=== PATIENT | female | born 1955 | race Caucasian/White ===

== ENCOUNTER → 2023-10-03 09:51 | Outpatient (REF) | payer MEDICARE, OTHER, SELFPAY ==
[2023-10-03 10:27] LABS: % Basophils 0.3 % (0-2); % Eosinophils 1.8 % (0-6); % Immature Granulocytes 0.4 % (0-0.5); % Lymphocytes 25.7 % (20.5-51.1); % Monocytes 7.2 % (1.7-9.3); % Neutrophils 64.6 % (42.2-75.2); Absolute Eosinophils 0.1 10^3/uL (0-0.7); Absolute Lymphocytes 1.8 10^3/uL (1.2-3.4); Absolute Monocytes 0.5 10^3/uL (0.1-0.6); Absolute Neutrophils 4.4 10^3/uL (1.4-6.5); Hemoglobin 13.6 g/dL (12.0-16.0); Mean Corp Hgb Conc. 33.2 g/dL (33.0-37.0); Mean Corpuscular Volume 84.5 fL (81.0-99.0); Mean Platelet Volume 9.3 fL (7.4-10.4); Nucleated Red Blood Cells % 0 %; Platelet Count 300 10^3/uL (130-400); Red Blood Cell Count 4.85 10^6/uL (4.20-5.40); Red Cell Dist. Width 13.8 % (11.5-14.5); White Blood Cell Count 6.9 10^3/uL (4.8-10.8)
[2023-10-03 12:49] LABS: ALT (SGPT) 31 U/L (0-35); AST (SGOT) 26 U/L (14-36); Albumin 4.4 g/dl (3.5-5.0); Alkaline Phosphatase 79 U/L (38-126); Blood Urea Nitrogen 23 mg/dl (7-17); Calcium 9.7 mg/dl (8.4-10.2); Carbon Dioxide 29 mmol/L (22-30); Chloride 103 mmol/L (98-107); Glucose 105 mg/dl (70-99); Potassium 3.9 mmol/L (3.5-5.1); Sodium 140 mmol/L (135-145); Total Bilirubin 0.6 mg/dl (0.2-1.3); Total Protein 7.6 g/dl (6.3-8.2); eGFR > 60.00
== END ==
LOC: SDSPAT 09:51
PROVIDERS: ATTENDING PHYSICIAN Internal Medicine Cardiovascular Disease; FAMILY PHYSICIAN Internal Medicine; OTHER PHYSICIAN Internal Medicine Cardiovascular Disease
DX: Z01.818 Encounter for other preprocedural examination (principal); I48.19 Other persistent atrial fibrillation
CPT/HCPCS: 36415; 80053; 85025; 93005

== ENCOUNTER 2023-10-22 05:51 | Day surgery (SDC) | payer MEDICARE, OTHER, SELFPAY ==
[2023-10-03 10:01] VITALS: BMI 42.7
[2023-10-22] VITALS (12 sets, daily range): BP systolic 108–170; BP diastolic 56–90; BMI 41.6
[2023-10-22] MEDS: NSS 329 ML IV (06:56)
[2023-10-22 08:28] LABS: ACT-LR - POC 311 Seconds (116-155)
--- NOTE | 2023-10-22 09:00 | ITS.CL.CATH ---
Addendum entered and electronically signed by Michele Ramos MD 10/22/23 17:03:
Correction: Under iFR results the IFR measurements in the RCA where 0.97, 0.97, and 0.97. There was no reading of 0.87 as reported erroneously below
Original Note:
[employer] [facility] [facility] - Catheterization
Cardiac Catheterization
Procedure Report:
CARDIAC CATHETERIZATION REPORT
Date of Procedure: 10/22/2023
Referring: Erick Kaur MD
Indication: Abnormal stress test with exertional dyspnea then abnormal coronary CTA
HEMODYNAMIC DATA
AO: 137/76
LV: 137/18
LEFT VENTRICULOGRAPHY: Not done
CORONARY ANGIOGRAPHY
Dominance: Right
Left Main: Normal
LAD: There is a single 60% stenosis in the mid LAD just distal to the takeoff of the small third diagonal branch with otherwise trivial luminal irregularities
Circumflex: The circumflex gives rise to a small OM1, large OM 2, and terminates in the AV groove distal to the takeoff of a small OM 3. The large OM 2 has 50-60% ostial/proximal stenosis
RCA: The RCA is dominant with focal 60% mid stenosis and otherwise trivial luminal irregularities
FloWire assessment: We evaluated the LAD, circumflex, and RCA lesions with FloWire assessment to determine their functional significance. The indwelling 5 Chadian right radial artery sheath was upsized to a 6 Chadian. An EBU 3.5 guide catheter was
used for left coronary assessment and a JR4 guide for the right coronary assessment. Heparin was used for anticoagulation. A Ready wire was used. Results were as follows:
LAD: iFR 0.97, 0.96, 0.97. These are all consistent with nonflow-limiting disease
OM 2: iFR 1.0, 1.0, 1.0. These are consistent with no flow limitation whatsoever
RCA: iFR 0.97, 0.97, 0.87. These are all consistent with nonflow-limiting disease
Closure Device: None-the procedure was performed via the right radial artery. The Chuy's test was normal prior to the procedure.
Radiation (mGy): 595
DAP (cm2.Gy): 47.8
Fluoroscopy time: 8.3 minutes
CONCLUSIONS
1: Triple-vessel CAD as described-FloWire assessment shows the LAD, OM 2, and RCA disease is nonflow limiting
2: Recommend aggressive risk factor modification efforts. We will begin atorvastatin 40 mg daily. She will resume Eliquis this evening.
Copy to: Erick Kaur MD, Daniel Downs MD
Michele Ramos MD, [facility], [facility]
--- NOTE | 2023-10-22 12:00 | PTCARENOTE ---
TR band removed as ordered. Dry, sterile dressing applied. Patient verbalizes mild discomfort with palpation of arm. When addressing patient, patient states, 'no its fine.' Patient refuses prn analgesic. MD aware. Patient verbalizes c/o 'wavy
vision'. She states she has vertigo and feels the vertigo coming on. She states there are black waves in her vision. NIH completed. NIH-0. Upon completion of the NIH patient states her vision is back to normal. MD aware and MD at bedside.
Patient ok for discharge.
[2023-10-22] MEDS: TYLENOL 650 MG PO (12:19)
== END 2023-10-22 12:25 | disposition home or self-care (01) ==
LOC: CATH 05:51
PROVIDERS: ATTENDING PHYSICIAN Internal Medicine Cardiovascular Disease; FAMILY PHYSICIAN Internal Medicine; OTHER PHYSICIAN Internal Medicine Cardiovascular Disease
DX: I25.10 Atherosclerotic heart disease of native coronary artery without angina pectoris (principal); R94.39 Abnormal result of other cardiovascular function study; R06.09 Other forms of dyspnea; I48.0 Paroxysmal atrial fibrillation; I10 Essential (primary) hypertension; E78.5 Hyperlipidemia, unspecified; E66.01 Morbid (severe) obesity due to excess calories; Z68.41 Body mass index [BMI] 40.0-44.9, adult; K21.9 Gastro-esophageal reflux disease without esophagitis; F32.A Depression, unspecified; R42 Dizziness and giddiness; M19.90 Unspecified osteoarthritis, unspecified site; Z87.891 Personal history of nicotine dependence; Z79.01 Long term (current) use of anticoagulants; Z79.82 Long term (current) use of aspirin
CPT/HCPCS: C1769; C1894; 85347; 93458; 93571; 93572; Q9967